=== PATIENT | male | born 1965 | race African-American/Black ===

== ENCOUNTER 2017-07-31 16:40 | Inpatient (IN) | payer MEDICARE ==
[~2017-07-31] VITALS: Ht 152.4 cm; Wt 89.5 kg
--- NOTE | ~2017-07-31 | CN ---
PATIENT NAME:BRIT SIFUENTES MEDICAL RECORD: [id number] : 67 LOCATION:. D.2119 ADMIT DATE: 07/31/17 ACCOUNT: [id number] CONSULTING PHYSICIAN: LAUREN FONTANEZ MD REFERRING PHYSICIAN: LESIA PERRY MD DATE OF CONSULTATION: 07/31/2017 DIAGNOSES: 1. Aqpvq-Uodmjvojn-Tkyzv syndrome. 2. Supraventricular tachycardia. 3. Shortness of breath, dyspnea on exertion. HISTORY OF PRESENT ILLNESS: Mr. Sifuentes presents to [facility] with shortness of breath, dyspnea on exertion, found to have multiple episodes of supraventricular tachycardia. He broke on a Cardizem drip. 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 He has no cardiac history. PHYSICAL EXAMINATION: GENERAL APPEARANCE: Well-nourished, well-developed, appears stated age. Level of distress, comfortable. PSYCHIATRIC: Mental status, alert, normal affect. Orientation, oriented to time, place and person. EYES: Lids and conjunctiva, noninjected. No discharge, no pallor. ENT: Lips, teeth, gums, normal dentition. Oropharynx, no cyanosis, no pallor. NECK: Carotid arteries, bilateral normal upstroke, no bruits, no thrills. JUGULAR VEINS: No jugular venous pressure or distention. CERVICAL LYMPH NODES: Nontender, nonenlarged. THYROID: Not enlarged. Nontender. No nodules. LUNGS: Respiratory effort, unlabored. CHEST: Normal curvature. No thoracic deformity. No chest wall tenderness. Percussion, resonant. Auscultation, clear. No wheezes, no rales, no rhonchi. CARDIOVASCULAR: Precordial exam, nondisplaced. No heaves or pericardial thrills. Rate and rhythm, regular. Heart sounds, normal S1, normal S2. No S3, no gallop, no rub. Systolic murmur, not heard. Diastolic murmur, not heard. EXTREMITIES: No cyanosis, no edema. Peripheral pulses, full and equal in all extremities, except as noted. No bruits appreciated. ABDOMEN: Soft, nondistended. Normal aorta. No bruit. Nontender. No masses. Liver, nontender, no hepatomegaly. Spleen, nontender, no splenomegaly. MUSCULOSKELETAL: No joint tenderness. No joint swelling. No erythema. NEUROLOGICAL: Normal gait, normal strength, normal tone. SKIN: Warm and dry. REVIEW OF SYSTEMS: The patient reports easy bruising but reports no swollen glands. The patient reports no fever, no night sweats, no significant weight gain, no significant weight loss. No significant exercise tolerance. The patient reports no dry eyes, no irritation, no vision change. Patient reports no difficulty hearing and no ear pain. Patient reports no frequent nose bleeds or nose and sinus problems. Patient reports on arm pain on exertion. No shortness of breath while lying down. No history of heart murmur. Patient reports no cough, no wheezing or coughing up blood. Patient reports no abdominal pain, no vomiting. Normal appetite. No diarrhea and not vomiting blood. No nausea and no constipation. Patient reports no incontinence. No difficulty urinating. No hematuria. No increased frequency. Patient reports no muscle aches. No weakness, no arthralgias, no back pain. No swelling of the extremities. Patient reports no abnormal mole, no jaundice, no rashes. Reports CONSULT REPORT [id number] BRIT SIFUENTES no loss of consciousness. No weakness and no numbness. No seizures, dizziness, or headaches. The patient reports no depression, no sleep disturbance, feeling safe in a relationship and no alcohol abuse. Patient reports on fatigue. Reports no runny nose or sinus pressure. No itching, no hives, and no frequent sneezing. 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 At this time, we will discontinue the diltiazem drip, start him on propafenone 150 mg b.i.d. Further care depends on findings with the results of this. TRANSINT:[id number] Voice Confirmation ID: [id number] DOCUMENT ID: [id number] LAUREN FONTANEZ MD at 1629 CC: [id number] DICTATION DATE: 07/31/17 1708 ASSEMBLER INSTALLER STRUCTURES: 08/01/17 0023 DIS IN 08/01/17 [place] [id number] [place] [id number]
[2017-07-31 17:21] VITALS: BP 115/69; Ht 152.4 cm; Wt 89.5 kg
[2017-07-31 21:09] VITALS: BP 108/59
[2017-08-01 01:02] VITALS: BP 127/79
[2017-08-01] MEDS ORDERED: SYNTHROID25 MCG PO (04:09)
[2017-08-01] MEDS ORDERED: ZOCOR5 MG PO (04:10)
[2017-08-01] MEDS ORDERED: PLAVIX75 MG PO (04:10)
[2017-08-01] MEDS ORDERED: TYLENOL W/CODEI1 TAB PO (04:11)
[2017-08-01] MEDS ORDERED: GLUCOPHAGE500 MG PO (04:11)
[2017-08-01] MEDS ORDERED: NORVASC10 MG PO (04:11)
[2017-08-01] MEDS ORDERED: KLOR-CON M2020 MEQ PO (04:12)
[2017-08-01] MEDS ORDERED: ZESTORETIC 20/21 TAB PO (04:12)
[2017-08-01 05:31] VITALS: BP 106/66
[2017-08-01 05:36] LABS: BASOPHILS 0.7 % (0-2); EOSINOPHILS 5.1 % (0-7); HEMATOCRIT 33.8 % (42.0-54.0); HEMOGLOBIN 11.1 g/dL (13.5-17.5); IMMATURE GRANULOCYTES 0.2 % (0-5); LYMPHOCYTES 28.8 % (15-50); MCH 29.5 pg (26.0-34.0); MCHC 32.8 g/dL (31.0-37.0); MCV 89.9 fL (80.0-100.0); MEAN PLATELET VOLUME 11.2 fL (7.4-10.4); MONOCYTES 7.2 % (2-11); PLATELET COUNT 216 10x3/uL (130-400); RBC 3.76 10x6/uL (4.20-6.10); RDW 15.1 % (11.5-14.5); WBC 6.1 10x3/uL (4.8-10.8)
[2017-08-01 06:29] LABS: ALKALINE PHOSPHATASE 45 U/L (46-116); ALT (SGPT) 20 U/L (10-68); CALC OSMOLALITY 278 mosm/kg (275-300); CALCIUM 8.6 mg/dL (8.5-10.1); CARBON DIOXIDE 25.4 mmol/L (21.0-32.0); CHLORIDE - SERUM 108 mmol/L (98-107); CREATININE - SERUM 1.1 mg/dL (0.6-1.3); GLUCOSE 89 mg/dL (74-106); POTASSIUM - SERUM 3.8 mmol/L (3.5-5.1); PROTEIN - SERUM 6.8 g/dL (6.4-8.2); SODIUM 141 mmol/L (136-145); T4 THYROXIN - FREE 0.95 ng/dL (0.76-1.46); UREA NITROGEN 10 mg/dL (7-18); eGFR NON AFRICAN AMERICAN 75 mL/min (90-120)
[2017-08-01 08:29] VITALS: BP 114/61
[2017-08-01] MEDS ORDERED: Rythmol PO (11:26)
[2017-08-01 11:54] VITALS: BP 106/63
[2017-08-01 15:44] VITALS: BP 127/83
[2017-08-01] MEDS ORDERED: PROPAFENONE HC150 MG PO (16:49)
== END 2017-08-01 17:36 | disposition home or self-care (01) | DRG 310 ==
LOC: D.M2 16:40
PROVIDERS: Family Medicine
DX: I47.1 Supraventricular tachycardia (principal); I45.6 Pre-excitation syndrome; E03.9 Hypothyroidism, unspecified; E11.65 Type 2 diabetes mellitus with hyperglycemia

== ENCOUNTER → 2020-08-20 09:17 | Outpatient (CLI) | payer MEDICARE ==
[2017-07-31 17:21] VITALS: BMI 38.5
--- NOTE | ~2020-08-20 | EC ---
PATIENT:BRIT CAM DATE OF SERVICE: 08/20/20 SEX: M MEDICAL RECORD: [id number] DATE OF : 67 LOCATION:[facility] [place] AGE OF PATIENT: 55 ADMISSION DATE: 08/20/20 REFERRING PHYSICIAN: INTERPRETING PHYSICIAN: JULIA HYDE MD ECHOCARDIOGRAM REPORT ECHO CHARGES 4 ECHO COMPLETE Date: 08/20/20 CLINICAL DIAGNOSIS: DYSPNEA/ASSESS EF AND VALVES HX OF WPW/SVT/HTN ECHOCARDIOGRAPHIC MEASUREMENTS (adult normal given) AC root (d.<3.7cm) 3.6 cm LV Septum d (<1.2 cm> 1.2 cm Valve Excursion 1.7 cm LV Septum (systole) 1.4 cm Left Atria (s.<4.0cm> 3.3 cm LVPW d(<1.2cm) 1.2 cm RV (d.<2.3cm) 3.1 cm LVPW (sytole) 1.5 cm LV diastole(<5.6CM) 5.6 cm MV E-F(>70mm/sec) cm LV systole 4.5 cm LVOT Diameter 1.8 cm MV exc.(>10mm) 1.4 cm Est.ejection fraction (50-75%) % DOPPLER: LVIT cm/sec A 67.0 cm/sec E 83.0 cm/sec LA cm/sec RVSP 34 mmHg LVOT 99 cm/sec AOP1/2T m/s Asc. Ao 131 cm/sec RVOT 75 cm/sec RA cm/sec PA 120 cm/sec AV Gradient Peak 6.84 mmHg AV Mean 3.44 mmHg AV Area 1.8 cm MV Gradient Peak 3.27 mmHg MV Mean 1.22 mmHg MV Area cm COMMENTS: Bass Fisher: 2 CYNTHIA CHACON Metal Machine Setter: 3 Dr. Berger TAPE# PACS Pericardial Effusion N DATE OF SERVICE: Adequate 2D, color flow imaging, spectral Doppler, and M-Mode. FINDINGS: Borderline LVH. LV internal dimensions are normal. Wall motion is normal. EF is greater than or equal to 55%. Aortic valve is tricuspid. No evidence of stenosis by Doppler interrogation. Left atrium is normal. Mitral valve shows no prolapse. Trace MR. Right side is grossly normal. Mild TR. TRANSINT:[id number] Voice Confirmation ID: [id number] DOCUMENT ID: [id number] ECHOCARDIOGRAM REPORT [id number] BRIT CAM GREGORY A MD CC: [id number] DICTATION DATE: 08/20/20 1113 FILE DRAWER FINISHER: 08/21/20 1432 DEP CLI 08/20/20 [place] [id number] [place] [id number]
[~2020-08-20 09:17] MED LIST: GLUCOPHAGE500 MG PO; KLOR-CON M2020 MEQ PO; NORVASC10 MG PO; PLAVIX75 MG PO; PROPAFENONE HC150 MG PO; Rythmol PO; SYNTHROID25 MCG PO; TYLENOL W/CODEI1 TAB PO; ZESTORETIC 20/21 TAB PO; ZOCOR5 MG PO
== END | disposition home or self-care (01) ==
LOC: D.HCCECHO 08-16 10:00
PROVIDERS: ATTEND Internal Medicine Interventional Cardiology
DX: R06.00 Dyspnea, unspecified (principal)